=== PATIENT | male | born 1935 | race Caucasian/White ===

== ENCOUNTER 2019-11-11 18:55 | Emergency (ER) | payer MEDICARE, MEDICAID ==
[2019-11-11] MEDS ORDERED: HYDROcodone/Acetaminophen 5/325 mg Tablet ONE (20:09)
[2019-11-11 20:28] LABS: #Basophils 0.1 thou/uL (0.0-0.2); #Eosinphils 0.1 thou/uL (0.0-0.7); #Monocytes 0.8 thou/uL (0.11-0.59); #Neutrophils 4.8 thou/uL (1.40-6.50); %Basophils 0.8 % (0.0-1.0); %Eosinophils 2.1 % (0.0-10.0); %Lymphocytes 14.1 % (21.0-51.0); %Monocytes 11.8 % (0.0-10.0); %Neutrophils 71.2 % (42.0-75.0); Hemoglobin 13.6 g/dL (14.0-18.0); Mean Corpuscular Hemoglobin 31.8 pg (27.0-31.0); Mean Corpuscular Volume 93.7 fL (78.0-98.0); Mean Platelet Volume 7.7 fL (7.4-10.4); Platelet Count 247 thou/uL (130-400); RBC Distribution Width 12.5 % (11.5-14.5); Red Blood Cell (RBC) Count 4.27 mill/uL (4.70-6.10); White Blood Cell (WBC) Count 6.8 thou/uL (4.8-10.8)
[2019-11-11 20:33] LABS: Prothrombin Time 13.3 sec (12.0-14.7)
[2019-11-11 20:34] LABS: PTT 29.3 sec (22.9-36.1)
--- NOTE | 2019-11-11 20:39 | CT ---
Exam: Head CT without contrast HISTORY: Fall. Pain. Injury. COMPARISON: none FINDINGS: Hemorrhage: No intraparenchymal hemorrhage or extra-axial hematoma. Brain parenchyma: Cortical hoang-white matter differentiation is preserved. No mass effect or midline shift. Basilar cisterns are patent.Age-appropriate atrophy. Ventricular system: Ventricles and sulci are patent and symmetric. Calvarium: Intact. Sinuses and mastoid air cells: Adequate aeration. IMPRESSION: No intracranial post traumatic sequelae.
--- NOTE | 2019-11-11 20:45 | CT ---
CT CERVICAL SPINE NONCONTRAST: 11/11/19 HISTORY: Fall. Injury. FINDINGS: vertebral body heights and AP alignment are maintained. Cervicothoracic junction is intact. No acute fracture or dislocation are apparent. There is disc space narrowing and discogenic end plate changes throughout the cervical spine. promine nt osteophytosis of the facets. 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 IMPRESSION: No acute osseous abnormalities are demonstrated. POS: BST
[2019-11-11 20:46] LABS: ALT (SGPT) 9 U/L (8-55); AST (SGOT) 14 U/L (5-34); Albumin 3.8 g/dL (3.4-4.8); Alkaline Phosphatase 72 U/L (40-110); Anion Gap 10 mmol/L (10-20); BUN (Urea Nitrogen) 23 mg/dL (8.4-25.7); Bilirubin, Total 0.4 mg/dL (0.2-1.2); Calc. Creatinine Clearance 0 mL/min (70-130); Calcium 8.8 mg/dL (7.8-10.44); Carbon Dioxide 27 mmol/L (23-31); Chloride 104 mmol/L (98-107); Estimated GFR-MDRD 75; Globulin 2.5 g/dL (2.4-3.5); Glucose 160 mg/dL (83-110); Potassium 3.8 mmol/L (3.5-5.1); Protein, Total 6.3 g/dL (5.8-8.1); Sodium 137 mmol/L (136-145)
--- NOTE | 2019-11-11 20:55 | CT ---
CT CHEST NONCONTRAST CT THORACIC SPINE NONCONTRAST 11/11/19 HISTORY: Injury. Fall. FINDINGS: Lungs are well inflated. No pleural fluid or pneumothorax apparent. Lack of contrast limits evaluatio n of the soft tissues. No evidence of mediastinal hematoma. There is prominent calcification of the c oronary arteries. 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 Within the partially visualized upper abdomen, hyperdense stones are present within the gallbladder l umen. Nondisplaced fractures involve the lateral aspect of left ribs four, five, and seven. Minimal atelectasis at the left lung base. Prominent rightward convexed curvature of the thoracic spine. Scattered osteophytosis. No acute fract ure or dislocation. IMPRESSION: Nondisplaced left lateral mid rib fractures. No evidence of pneumothorax. Prominent atherosclerosis. Cholelithiasis. POS: BST
[2019-11-11] MEDS ORDERED: Ketorolac Tromethamine 30 MG/ML VIAL ONE (22:01)
== END 2019-11-11 22:00 | disposition home or self-care (01) ==
LOC: ERS 18:55
DX: S22.42XA Multiple fractures of ribs, left side, initial encounter for closed fracture (principal); I10 Essential (primary) hypertension; Z79.899 Other long term (current) drug therapy; V19.9XXA Pedal cyclist (driver) (passenger) injured in unspecified traffic accident, initial encounter
CPT/HCPCS: 70450; 71250; 72125; 80053; 85025; 85610; 85730; 94799; J1885

== ENCOUNTER 2023-05-17 11:04 | Outpatient (CLI) | payer MEDICARE | END 2023-05-17 11:05 | disposition home or self-care (01) | LOC: BICRAD 11:04 | PROVIDERS: ATTEND Nurse Practitioner Family | DX: M25.551 Pain in right hip (principal); I71.40 Abdominal aortic aneurysm, without rupture, unspecified; M47.816 Spondylosis without myelopathy or radiculopathy, lumbar region; M85.88 Other specified disorders of bone density and structure, other site; M41.9 Scoliosis, unspecified; I70.90 Unspecified atherosclerosis; M25.861 Other specified joint disorders, right knee | CPT/HCPCS: 72100 ==